=== PATIENT | female | born 1995 | race Caucasian/White ===

== ENCOUNTER 2016-12-27 20:41 | Emergency (ER) | payer MEDICARE, MEDICAID ==
[~2016-12-27] VITALS: Ht 157.5 cm; Wt 60.0 kg
[2016-12-27 20:47] VITALS: BP 140/96; PULSE 85; RESP 16; TEMP 98.8; O2SAT 99
[2016-12-27] MEDS ORDERED: LEVO330T PO (22:28)
[2016-12-27] MEDS ORDERED: CALC0.5C6 PO (22:28)
[2016-12-27] MEDS ORDERED: CALC1250 PO (22:28)
--- NOTE | 2016-12-27 22:32 | PD ---
HPI Chief Complaint: GI Complaint Time Seen by Provider: 22:32 Travel History International Travel<30 days: No Contact w/Intl Traveler<30days: No Traveled to known affect area: No History of Present Illness HPI 21 YO F with history of blindness presents to the ED for evaluation of` ~2 day history of nausea and vomiting. Gradual onset. Patient denies fever, chills, abdominal pain, changes in bowel habits, dysuria, vaginal discharge or back pain. Patient endorses mild headache, onset during the course of today. She endorses a sick contact, states that her mother's friend had "a stomach virus" recently. Patient states she is currently menstruating, is not sexually active. PFSH Past Medical History LMP: 11/25/16 Social History Tobacco Use: No Allergies-Medications (Allergen,Severity, Reaction): Coded Allergies: Meclizine (Verified Allergy, Intermediate, Restlessness, 12/27/16) Uncoded Allergies: ANESTHESIA (Allergy, Severe, Anaphylaxis, 12/27/16) Reported Meds & Prescriptions Reported Meds & Active Scripts Active Cipro (Ciprofloxacin HCl) 250 Mg Tab 250 Mg PO BID 3 Days Reported Calcitriol 0.5 Mcg Cap 0.5 Mcg PO BID Calcium Carbonate Liq (Calcium Carbonate) 1,250 Mg/5 Ml Susp 15 Ml PO TID Levocarnitine (Levocarnitine (Metabolic Modif)) 330 Mg Tab 330 Mg PO DAILY Review of Systems Except as stated in HPI: all other systems reviewed are Neg Physical Exam Narrative GENERAL: Well-nourished, well-developed blind white female in no acute distress. SKIN: Focused skin assessment warm/dry. HEAD: Normocephalic. EYES: No scleral icterus. No injection or drainage. NECK: Supple, trachea midline. No JVD or lymphadenopathy. CARDIOVASCULAR: Regular rate and rhythm without murmurs, gallops, or rubs. RESPIRATORY: Breath sounds clear and equal bilaterally. No accessory muscle use. GASTROINTESTINAL: Abdomen soft, non-tender, nondistended. Active bowel sounds. MUSCULOSKELETAL: No cyanosis, or edema. BACK: Nontender without obvious deformity. No CVA tenderness. Data Data Last Documented VS Vital Signs Date Time Temp Pulse Resp B/P Pulse Ox O2 Delivery O2 Flow Rate FiO2 12/27/16 20:47 98.8 85 16 140/96 99 Room Air Orders Ed Urine Pregnancytest Poc (12/27/16 22:29) Urinalysis - C+S If Indicated (12/27/16 22:29) Complete Blood Count With Diff (12/27/16 23:06) Comprehensive Metabolic Panel (12/27/16 23:06) Iv Access Insert/Monitor (12/27/16 23:06) Ondansetron Inj (Zofran Inj) (12/27/16 23:15) Sodium Chlor 0.9% 1000 Ml Inj (Ns 1000 M (12/27/16 23:06) Sodium Chloride 0.9% Flush (Ns Flush) (12/27/16 23:15) Ketorolac Inj (Toradol Inj) (12/27/16 23:15) Urine Culture (12/27/16 22:40) Potassium Chloride (Kcl) (12/28/16 00:00) Labs Laboratory Tests Test 12/27/16 12/27/16 22:40 23:20 Urine Color YELLOW Urine Turbidity CLEAR Urine pH 7.5 Urine Specific [place] 1.018 Urine Protein TRACE mg/dL Urine Glucose (UA) NEG mg/dL Urine Ketones NEG mg/dL Urine Occult Blood NEG Urine Nitrite NEG Urine Bilirubin NEG Urine Urobilinogen LESS THAN 2.0 MG/DL Urine Leukocyte Esterase NEG Urine RBC 3 /hpf Urine WBC 10 /hpf Urine Squamous Epithelial <1 /hpf Cells Urine Mucus FEW /lpf Microscopic Urinalysis Comment CULTURE INDICATED White Blood Count 6.1 TH/MM3 Red Blood Count 4.51 MIL/MM3 Hemoglobin 11.4 GM/DL Hematocrit 35.2 % Mean Corpuscular Volume 78.2 FL Mean Corpuscular Hemoglobin 25.3 PG Mean Corpuscular Hemoglobin 32.3 % Concent Red Cell Distribution Width 12.8 % Platelet Count 281 TH/MM3 Mean Platelet Volume 8.4 FL Neutrophils (%) (Auto) 55.1 % Lymphocytes (%) (Auto) 29.0 % Monocytes (%) (Auto) 11.3 % Eosinophils (%) (Auto) 4.0 % Basophils (%) (Auto) 0.6 % Neutrophils # (Auto) 3.4 TH/MM3 Lymphocytes # (Auto) 1.8 TH/MM3 Monocytes # (Auto) 0.7 TH/MM3 Eosinophils # (Auto) 0.2 TH/MM3 Basophils # (Auto) 0.0 TH/MM3 CBC Comment DIFF FINAL Differential Comment Sodium Level 143 MEQ/L Potassium Level 2.9 MEQ/L Chloride Level 104 MEQ/L Carbon Dioxide Level 28.6 MEQ/L Anion Gap 10 MEQ/L Blood Urea Nitrogen 13 MG/DL Creatinine 1.15 MG/DL Estimat Glomerular Filtration 60 ML/MIN Rate Random Glucose 87 MG/DL Calcium Level 8.9 MG/DL Total Bilirubin 0.3 MG/DL Aspartate Amino Transf 16 U/L (AST/SGOT) Alanine Aminotransferase 23 U/L (ALT/SGPT) Alkaline Phosphatase 52 U/L Total Protein 7.1 GM/DL Albumin 3.5 GM/DL [facility] Medical Decision Making Medical Screen Exam Complete: Yes Emergency Medical Condition: Yes Differential Diagnosis Gastritis versus urinary tract infection versus dehydration versus electrolyte abnormality versus other Narrative Course 21 YO F with history of blindness presents to the ED for evaluation of` ~2 day history of nausea and vomiting. Gradual onset. Patient denies fever, chills, abdominal pain, changes in bowel habits, dysuria, vaginal discharge or back pain. Patient endorses mild headache, onset during the course of today. Patient states she is currently menstruating, is not sexually active. Vitals reviewed. Physical exam reveals a nontoxic-appearing white female in no acute distress. Abdominal exam is benign. IV was established. Patient was administered 1 L normal saline, 4 mg Zofran, 30 mg of Toradol IV. CBC is unremarkable. CMP reveals hypokalemia of 2.9. Patient was administered 60 mg of KCl by mouth. On recheck she states that her nausea has resolved. UA with 10 WBCs. We'll treat for urinary tract infection. Patient requests Cipro, states that she is familiar with this medication. Unfortunately Zofran is contraindicated in this case. Patient's instructed to return to ED should her nausea and vomiting return. She indicated understanding of instructions and is agreeable to the care plan. The patient stable and discharged home. Diagnosis Primary Impression: Hypokalemia Additional Impression: UTI (urinary tract infection) Qualified Code: N39.0 - Urinary tract infection with hematuria, site unspecified Referrals: Primary Care Physician Scripts Ciprofloxacin (Cipro)250 Mg [id number] Mg PO BID 3 Days Ref 0 Prov:María Kan DO 12/28/16 Disposition: 01 DISCHARGE HOME Condition: Stable Lucero Spears Dec 27, 2016 22:32
[2016-12-27] MEDS ORDERED: SODIUM CHLOR 0.9% 1000 ML INJ 1,000 ML IV SCH (23:06)
[2016-12-27 23:14] LABS: BLOOD, URINE NEG (NEG); COMMENT (UR) CULTURE INDICATED; CULTURE IF INDICATED CULTURE INDICATED; GLUCOSE,URINE NEG (NEG); KETONE, URINE NEG (NEG); MUCUS URINE FEW /lpf (OCC); NITRITE,URINE NEG (NEG); PH, URINE 7.5 (5.0-8.5); SQUAMOUS EPITHELIAL CELL URINE <1 /hpf (0-5); URINE COLOR YELLOW (YELLW/STRAW)
[2016-12-27] MEDS ORDERED: SODIUM CHLORIDE 0.9% FLUSH 10 ML FLUSH IV FLUSH PRN (23:15)
[2016-12-27] MEDS ORDERED: KETOROLAC TROMETHAMINE 30 MG/ML (IVP) VIAL IV PUSH ONE (23:15)
[2016-12-27] MEDS ORDERED: ONDANSETRON HCL 4 MG/2 ML VIAL IVP ONE (23:15)
[2016-12-27 23:31] LABS: AUTOMATED NEUTROPHIL # 3.4 TH/MM3 (1.8-7.7); BASOPHIL % 0.6 % (0.0-2.0); EOSINOPHIL # 0.2 TH/MM3 (0-0.4); HEMATOCRIT 35.2 % (35.0-46.0); HEMO FLAGS DIFF FINAL; LYMPHOCYTE # 1.8 TH/MM3 (1.0-4.8); MEAN CELL VOLUME 78.2 FL (80.0-100.0); MEAN CORPUSCULAR HEMOGLOBIN 25.3 PG (27.0-34.0); MEAN CORPUSCULAR HGB CONC 32.3 % (32.0-36.0); MONO % 11.3 % (0.0-8.0); NEUT % 55.1 % (16.0-70.0); PLATELET COUNT 281 TH/MM3 (150-450); RED BLOOD COUNT 4.51 MIL/MM3 (4.00-5.30); RED CELL DISTRIBUTION WIDTH 12.8 % (11.6-17.2); WHITE BLOOD COUNT 6.1 TH/MM3 (4.0-11.0)
[2016-12-27 23:54] LABS: ALKALINE PHOSPHATASE 52 U/L (45-117); ALT (GPT) 23 U/L (9-42); ANION GAP 10 MEQ/L (5-15); AST (GOT) 16 U/L (16-38); BICARBONATE 28.6 MEQ/L (21.0-32.0); BLOOD UREA NITROGEN 13 MG/DL (7-18); CHLORIDE 104 MEQ/L (98-107); GLOMERULAR FILTRATION RATE 60 ML/MIN (>89); SODIUM (NA) 143 MEQ/L (136-145); TOTAL BILIRUBIN ADULT 0.3 MG/DL (0.2-1.0)
[2016-12-27 23:56] LABS: POTASSIUM 2.9 MEQ/L (3.5-5.1)
[2016-12-28] MEDS ORDERED: ZOFR4TAB3 SL (00:44)
[2016-12-28] MEDS ORDERED: CIPR250T52 PO (00:44)
--- NOTE | 2016-12-28 00:44 | PD ---
Physical Exam Narrative I, Dr. Kan, have reviewed the advance practice practitioner's documentation and am in agreement, met with the patient face to face, made the diagnosis, and the medical decision making was done by me. *My assessment and Findings: Vomiting vs. viral syndrome 21yo F with PMH of blindness since she was 7yo here with nausea and vomiting for 2 days. Pt has no fever, abdominal pain, urinary complaints, chest pain, sob. Labs reviewed, no leukocytosis. Hypokalemia at 2.9. Pt given zofran and KCl 60mEql. Creatinine on the high side at 1.15. No prior to compare. UA showed WBC 10. <1 squamous. Culture indicated. Will treat for UTI. Pt reevaluated at bedside and states she is no longer nauseous and is now tolerating PO. Instructed pt to eat potassium rich food. Urine negative. Abdomen soft, NT/ND. Return precautions given. Data Data Last Documented VS Vital Signs Date Time Temp Pulse Resp B/P Pulse Ox O2 Delivery O2 Flow Rate FiO2 12/27/16 20:47 98.8 85 16 140/96 99 Room Air Orders Ed Urine Pregnancytest Poc (12/27/16 22:29) Urinalysis - C+S If Indicated (12/27/16 22:29) Complete Blood Count With Diff (12/27/16 23:06) Comprehensive Metabolic Panel (12/27/16 23:06) Iv Access Insert/Monitor (12/27/16 23:06) Ondansetron Inj (Zofran Inj) (12/27/16 23:15) Sodium Chlor 0.9% 1000 Ml Inj (Ns 1000 M (12/27/16 23:06) Sodium Chloride 0.9% Flush (Ns Flush) (12/27/16 23:15) Ketorolac Inj (Toradol Inj) (12/27/16 23:15) Urine Culture (12/27/16 22:40) Potassium Chloride (Kcl) (12/28/16 00:00) Labs Laboratory Tests Test 12/27/16 12/27/16 22:40 23:20 Urine Color YELLOW Urine Turbidity CLEAR Urine pH 7.5 Urine Specific [place] 1.018 Urine Protein TRACE mg/dL Urine Glucose (UA) NEG mg/dL Urine Ketones NEG mg/dL Urine Occult Blood NEG Urine Nitrite NEG Urine Bilirubin NEG Urine Urobilinogen LESS THAN 2.0 MG/DL Urine Leukocyte Esterase NEG Urine RBC 3 /hpf Urine WBC 10 /hpf Urine Squamous Epithelial <1 /hpf Cells Urine Mucus FEW /lpf Microscopic Urinalysis Comment CULTURE INDICATED White Blood Count 6.1 TH/MM3 Red Blood Count 4.51 MIL/MM3 Hemoglobin 11.4 GM/DL Hematocrit 35.2 % Mean Corpuscular Volume 78.2 FL Mean Corpuscular Hemoglobin 25.3 PG Mean Corpuscular Hemoglobin 32.3 % Concent Red Cell Distribution Width 12.8 % Platelet Count 281 TH/MM3 Mean Platelet Volume 8.4 FL Neutrophils (%) (Auto) 55.1 % Lymphocytes (%) (Auto) 29.0 % Monocytes (%) (Auto) 11.3 % Eosinophils (%) (Auto) 4.0 % Basophils (%) (Auto) 0.6 % Neutrophils # (Auto) 3.4 TH/MM3 Lymphocytes # (Auto) 1.8 TH/MM3 Monocytes # (Auto) 0.7 TH/MM3 Eosinophils # (Auto) 0.2 TH/MM3 Basophils # (Auto) 0.0 TH/MM3 CBC Comment DIFF FINAL Differential Comment Sodium Level 143 MEQ/L Potassium Level 2.9 MEQ/L Chloride Level 104 MEQ/L Carbon Dioxide Level 28.6 MEQ/L Anion Gap 10 MEQ/L Blood Urea Nitrogen 13 MG/DL Creatinine 1.15 MG/DL Estimat Glomerular Filtration 60 ML/MIN Rate Random Glucose 87 MG/DL Calcium Level 8.9 MG/DL Total Bilirubin 0.3 MG/DL Aspartate Amino Transf 16 U/L (AST/SGOT) Alanine Aminotransferase 23 U/L (ALT/SGPT) Alkaline Phosphatase 52 U/L Total Protein 7.1 GM/DL Albumin 3.5 GM/DL [facility] Supervised Visit with SERA: Yes Diagnosis Primary Impression: Hypokalemia Additional Impression: UTI (urinary tract infection) Qualified Code: N39.0 - Urinary tract infection with hematuria, site unspecified Patient Instructions: General Instructions Departure Forms: Tests/Procedures Additional Instruction: Please follow up with your PMD in 3-7 days. Please eat food rich in potassium. Return to the ED if symptoms worsen. Med/Other Pt SpecificInfo: Prescription(s) given Scripts Ciprofloxacin (Cipro)250 Mg [id number] Mg PO BID 3 Days Ref 0 Prov:María Kan DO 12/28/16 Disposition: 01 DISCHARGE HOME Condition: Stable LoretaMaría GÓMEZ Dec 28, 2016 00:44
[2016-12-28] MEDS ORDERED: POTASSIUM CHLORIDE 20 MEQ CONTROLLED RELEASE TAB PO ONE ×2 (01:00)
== END 2016-12-28 01:19 | disposition home or self-care (01) ==
LOC: NEPD 20:41
DX: E87.6 Hypokalemia (principal); N39.0 Urinary tract infection, site not specified; R51 Headache; H54.0 Blindness, both eyes
CPT/HCPCS: 80053; 81001; 84703; 85025; 87086; 96361; 96374; 96375; 99284; J1885; J2405; J7030